=== PATIENT | female | born 1975 | race Caucasian/White ===

== ENCOUNTER 2020-06-06 13:59 | Outpatient (REF) | payer MEDICAID, SELFPAY ==
--- NOTE | 2020-06-06 14:08 | MM_ITS ---
EXAMINATION: MM SCREENING DIGITAL BREAST TOMOSYNTHESIS, BILATERAL CLINICAL INFORMATION: Screening. Asymptomatic. Family history breast cancer, mother, aunt. The lifetime risk of breast cancer based on the Tyrer-Cuzick Model is 25%. COMPARISON: Mammography: 12/03/2017, 11/22/2015 TECHNIQUE: Digital breast tomosynthesis is performed in both the craniocaudal and mediolateral oblique views along with computer-aided detection (CAD). Synthesized 2D images are generated from the tomosynthesis. Additional exaggerated left CC view is provided. FINDINGS: The breasts are almost entirely fatty (ACR BI-RADS breast composition Category a). Background stromal markings are stable. There is no developing density or interval mass or architectural abnormality. No abnormal calcifications. The axilla and skin contours are unremarkable. MM/MM tomosynthesis screening BI IMPRESSION: No mammographic evidence of malignancy. ASSESSMENT: BI-RADS 1: Negative RECOMMENDATION: 1. Routine annual mammography screening. 2. The lifetime risk of breast cancer based on the Tyrer-Cuzick Model is 25%. Additional annual adjunct screening with breast MRI may be of benefit in women with a risk score of 20% or greater. This patient's information was entered into a reminder system with a target due date for their next mammogram.
== END 2020-06-06 14:00 | disposition home or self-care (01) ==
LOC: HO.MAMMO 13:59
PROVIDERS: PCP Internal Medicine; Visit Provider Internal Medicine
DX: Z12.31 Encounter for screening mammogram for malignant neoplasm of breast (principal)
CPT/HCPCS: 77063; 77067

== ENCOUNTER 2020-10-27 12:53 | Outpatient (REF) | payer MEDICAID, SELFPAY ==
--- NOTE | ~2020-10-27 | XR_ITS ---
EXAMINATION: XR HAND, BILATERAL CLINICAL INFORMATION: Carpal tunnel syndrome. Pain. COMPARISON: 11/27/2018 TECHNIQUE: 3 views of each hand. FINDINGS: There is no evidence of acute fracture or dislocation of the left hand. No destructive bony lesions. Joint spaces are maintained. No erosive changes evident. Minimal spurring about the 1st interphalangeal joint is noted. 3 views of the right hand do not demonstrate any evidence of acute fracture or dislocation. Joint spaces are maintained. No destructive bony lesions. No radiopaque foreign bodies. No erosive changes evident. XR/XR hand LT min 3V IMPRESSION: No significant bony abnormalities of the right or left hands.
--- NOTE | ~2020-10-27 | XR_ITS ---
EXAMINATION: XR HAND, BILATERAL CLINICAL INFORMATION: Carpal tunnel syndrome. Pain. COMPARISON: 11/27/2018 TECHNIQUE: 3 views of each hand. FINDINGS: There is no evidence of acute fracture or dislocation of the left hand. No destructive bony lesions. Joint spaces are maintained. No erosive changes evident. Minimal spurring about the 1st interphalangeal joint is noted. 3 views of the right hand do not demonstrate any evidence of acute fracture or dislocation. Joint spaces are maintained. No destructive bony lesions. No radiopaque foreign bodies. No erosive changes evident. XR/XR hand RT min 3V IMPRESSION: No significant bony abnormalities of the right or left hands.
== END 2020-10-27 12:54 | disposition home or self-care (01) ==
LOC: HO.XRAY 12:53
PROVIDERS: PCP Internal Medicine; Visit Provider Family Medicine
DX: G56.03 Carpal tunnel syndrome, bilateral upper limbs (principal)
CPT/HCPCS: 73130

== ENCOUNTER 2021-01-04 11:30 | Outpatient (RCR) | payer MEDICAID, SELFPAY | END 2021-11-27 11:40 | disposition home or self-care (01) | LOC: HO.OT 11:30 | PROVIDERS: PCP Internal Medicine; Visit Provider Internal Medicine | DX: G56.03 Carpal tunnel syndrome, bilateral upper limbs (principal) | CPT/HCPCS: 29130; 97110; 97140; 97165; 97760 ==

== ENCOUNTER 2021-01-31 08:59 | Outpatient (REF) | payer MEDICAID, SELFPAY ==
--- NOTE | 2021-01-31 09:30 | EMG_ITS ---
This is a 45-year-old woman with 2-month history of bilateral hand pain, left more than right and difficulty closing her hands and flexing her fingers. Neurological examination reveals some tenderness of the PIP and MP joints in the hands. No Tinel or Phalen sign. IMPRESSION: Rule out carpal tunnel syndrome. Nerve conduction study: Normal electrodiagnostic study of both upper extremity with no evidence of carpal tunnel syndrome or nerve entrapment. Normal EMG of the left C5-T1 innervated muscles. MD BUSTER Yeboah/[place]ERSON / [id number]
== END 2021-01-31 09:00 | disposition home or self-care (01) ==
LOC: HO.NEURO 08:59
PROVIDERS: Visit Provider Internal Medicine
DX: G56.03 Carpal tunnel syndrome, bilateral upper limbs (principal)
CPT/HCPCS: 95885; 95913

== ENCOUNTER 2022-05-03 09:12 | Outpatient (REF) | payer MEDICAID, SELFPAY ==
--- NOTE | ~2022-05-03 | MM_ITS ---
EXAMINATION: MM SCREENING DIGITAL BREAST TOMOSYNTHESIS, BILATERAL CLINICAL INFORMATION: Screening. Asymptomatic. Family history breast cancer, mother. The lifetime risk of breast cancer based on the Tyrer-Cuzick Model is 26%. COMPARISON: Mammography: 05/07/2020, 12/03/2017, 11/22/2015 TECHNIQUE: Digital breast tomosynthesis is performed in both the craniocaudal and mediolateral oblique views along with computer-aided detection (CAD). Synthesized 2D images are generated from the tomosynthesis. FINDINGS: The breasts are almost entirely fatty (ACR BI-RADS breast composition Category a). There are no significant masses, abnormal calcifications, or other abnormalities. Background stromal markings are stable. No architectural abnormality. No significant changes. MM/MM tomosynthesis screening BI IMPRESSION: No mammographic evidence of malignancy. ASSESSMENT: BI-RADS 1: Negative RECOMMENDATION: Routine annual mammography screening. This patient's information was entered into a reminder system with a target due date for their next mammogram.
== END 2022-05-03 09:13 | disposition home or self-care (01) ==
LOC: HO.MAMMO 09:12
PROVIDERS: Visit Provider Internal Medicine
DX: Z12.31 Encounter for screening mammogram for malignant neoplasm of breast (principal)
CPT/HCPCS: 77063; 77067

== ENCOUNTER → 2024-05-31 22:27 | Outpatient (REF) | payer MEDICAID, SELFPAY | LOC: HO.SL 22:27 | PROVIDERS: PCP Internal Medicine; Visit Provider Internal Medicine | DX: Z13.89 Encounter for screening for other disorder (principal) ==

== ENCOUNTER → 2025-03-11 19:44 | Outpatient (REF) | payer OTHER, SELFPAY ==
--- OUTSIDE RECORDS SUMMARY | 2025-03-14 08:00 | XMS_ITS | Clinical Summary ---
Author Organization [address] [facility] Address [address] [place] [address] Phone Care Team Providers Care Golf Player Assistant Name Role Phone Amber Trivedi MD Primary Care Provide r Allergies No known active allergies Medications No known medications Active Problems No known active problems Social History Tobacco Use Types Packs/Day Years Used Date Smoking Tobacco: Never Smokeless Tobacco: Never Comments Unknown Sex and Gender Information Value Date Recorded Sex Assigned at Female 09/19/2024 1:42 PM EST Legal Sex Female 1:56 PM EST Gender Identity Female 09/19/2024 1:42 PM EST Sexual Orientation Not on file Obstetrics History Last Filed Vital Signs Vital Sign Reading Time Taken Comments Blood Pressure 140/75 09/19/2024 4:17 PM EST Pulse 82 09/19/2024 4:17 PM EST Temperature 36.6 C (97.8 F) 09/19/2024 1:22 PM EST Respiratory Rate 20 09/19/2024 4:17 PM EST Oxygen Saturation 96% 09/19/2024 4:17 PM EST Inhaled Oxygen Concentration - - Weight 113 kg (250 lb) 09/19/2024 1:29 PM EST Height 162.6 cm (5' 4 ) 09/19/2024 1:29 PM EST Body Mass Index 42.91 09/19/2024 1:29 PM EST Plan of Treatment Health Maintenance Due Date Last Done Comments Hepatitis B Vaccines (1 of 3 - 19+ 3-dose series) 1992 Pneumococcal Vaccine: 50+ Years (1 of 2 - PCV) 1992 Cervical Cancer Screening: P ap Smear 1994 DTaP,Tdap,and Td Vaccines (3 - Td or Tdap) 06/15/2022 06/15/2012, 04/29/2008 Colorectal Cancer Screening: Colonoscopy 06/26/2022 HIV Screening 06/26/2022 Hepatitis C Screening 06/26/2022 Social Influencers of Health Screening 06/26/2022 Zoster Vaccines (1 of 2) 2023 COVID-19 Vaccine (3 - 2023-2 5 season) 2024 02/28/2021, 02/07/2021 Breast Cancer Screening 05/03/2024 05/03/2022 Depression Screening 07/28/2024 Influenza Vaccine (#1) 2025 04/08/2018 Cholesterol Screening (Lipid Panel) 04/18/2025 04/18/2020 MMR Vaccines Aged Out 02/03/2018, 12/11/2017 No longer eligible based on patient's age to complete this topic HIB Vaccines Aged Out No longer eligi ble based on patient's age to complete this topic HPV Vaccines Aged Out No longer eligi ble based on patient's age to complete this topic Hepatitis A Vaccines Aged Out No long er eligible based on patient's age to complete this topic IPV Vaccines Aged Out No longer eligi ble based on patient's age to complete this topic Meningococcal ACWY Vaccine Aged Out N o longer eligible based on patient's age to complete this topic Meningococcal B Vaccine Aged Out No l onger eligible based on patient's age to complete this topic RSV Immunization Patients Under 20 months Aged Out No longer eligible b ased on patient's age to complete this topic Varicella Vaccines Aged Out No longer eligible based on patient's age to complete this topic Insurance MEDICAID - [place] Care Teams Golf Player Assistant Relationship Specialty Start Date End Date Amber Trivedi MD [address] [phone] PCP - General Internal Medicine 04/04/20
--- OUTSIDE RECORDS SUMMARY | 2025-03-14 08:00 | XMS_ITS | Encounter Summary ---
Author Organization [employer] Address [address] [place] [address] [address] [place] [address] Care Team Providers Care Assistant Store Manager Operations Name Role Phone Amber Trivedi MD Primary Care Provide r Reason for Visit * Reason Onset Date Comments Nurse Triage 08/06/2023 Encounter Details Date Type Department Care Team ([facility] st Contact Info) Description 08/06/2023 Telephone [facility] [address] [place], [place] [phone] Amber Trivedi MD [address] [place], [place] [phone] Nurse Triage Social History Tobacco Use Types Packs/Day Years Used Date Smoking Tobacco: Never Assessed Comments Unknown Sex and Gender Information Value Date Recorded Sex Assigned at Female 05/27/2022 10:17 AM EDT Legal Sex Female 10:17 AM EDT Gender Identity Female 05/27/2022 10:17 AM EDT Sexual Orientation Lesbian or Escobar 05/27/2022 10 :17 AM EDT documented as of this encounter Miscellaneous Notes * Telephone Encounter - Laura Zamora RN - 08/06/2023 2:57 PM EST Triage call Pt reports has had nausea since 08/03/23 without vomiting. Pt reports profuse sweating attimes but no fever, temp is 97.5. Pt has had some loose stool and is voiding WNL. Pt has not testedfor Covid, Home test was . Pt also has some sob with exertion and feels very weak all the time. Pt says, I just don't feel like myself . Neg for difficulty breathing. Pt also reports no period since April 2023 so is possibly in menopause. Pt is advised to come to [facility] open till 8pm today to be seen by provider and Pt agrees with disposition and advised to increase liquid intake. Protocol Used: Nausea (Adult) Protocol-Based Disposition: See in Office or Video Visit Today or Tomorrow Video visit not offered Positive Triage Question: * Patient wants to be seen * All higher-acuity triage questions were negative Care Advice Discussed: * Reassurance and Education - Nausea * Clear Fluids * Reasons To Call Back - Nausea lasts over 1 week - You become worse * Telephone Encounter - Howard Lr - 08/06/2023 2:16 PM EST Symptoms: Nausea But No Vomiting, Back Pain - Not From Injury, Weakness Outcome: Schedule an urgent appointment (within 1 hour) or talk to a nurse or provider soon Reason: Getting worse documented in this encounter Plan of Treatment Upcoming Encounters Date Type Department Care Team (Late st Contact Info) Description 04/25/2025 1:45 PM EDT Office Visit [facility] [address] [place] [address] Amber Trivedi MD [address] [place] [address] 05/26/2025 2:30 PM EDT Office Visit [facility] [address] [place] [address] Jaime, Loulou, OD [address] [place] [address] documented as of this encounter Visit Diagnoses Not on filedocumented in this encounter Care Teams Assistant Store Manager Operations Relationship Specialty Start Date End Date Amber Trivedi MD [address] [place] [address] PCP - General Family Medicine 09/22/18 documented as of this encounter
== END ==
LOC: HO.SL 19:44
PROVIDERS: PCP Internal Medicine; Visit Provider Internal Medicine
DX: Z13.89 Encounter for screening for other disorder (principal)